=== PATIENT | male | born 1930 | race Caucasian/White ===

== ENCOUNTER 2019-03-29 10:36 | Emergency (ER) | payer OTHER ==
[2019-03-29 10:51] VITALS: TEMP 97.8; BMI 27.2
--- NOTE | 2019-03-29 11:05 | PDOC ---
Attending Attestation - Resident Resident Name: Uriah Rapp - ED Attending Attestation I have performed the following: I have examined & evaluated the patient, The case was reviewed & discussed with the resident, I agree w/resident's findings & plan, Exceptions are as noted - HPI HPI: 03/29/19 15:46 88 years old hypertension awoke from sleep feeling sweaty with a warm feeling over his chest denied any chest pain shortness of breath nausea vomiting and diarrhea went back to sleep. This morning he woke he called his doctor his doctor advised that he come to the emergency department to get checked out. Currently patient has no symptoms no fever no chills no chest pain or shortness of breath no new URI symptoms has chronic sinus issues but no fever unilateral symptoms or severe pain. Symptoms were mild states that it was probably because he was fully dressed and using a warm blanket in the house Asymptomatic - Physicial Exam PE: 03/29/19 16:00 Vitals: Triage Vital signs reviewed General Appearance: no acute distress, well nourished well developed, Head: Atraumatic, Neck: Supple;No Nucal rigidity Chest Wall: Nontender Cardiac: Regular rate and rhythym, no murmurs, no rubs, no gallops, Lungs: Clear to auscultation bilateral, good air movement bilaterally, Abdomen: Soft, non distended, normal bowel sounds, non tender to palpation Genitourinary: Rectal: Exam deferred Extremities: Full range of motion to all extremities, no cyanosis, clubbing, or edema Skin: Warm and dry, no rashes or lesions, no rash, no petechiae Psych: normal mood, normal affect - Medical Decision Making 03/29/19 16:01 Well-appearing no apparent distress with episode last night of feeling flush No complaints at this time no findings on physical exam at this time laboratory analysis unremarkable EKG unremarkable troponin negative Heart score 3 At this time patient is comfortable returning home over workup in the ED was essentially unremarkable he was advised to follow-up with his primary care provider he will return to ED for any severe returning symptoms or for any concerns. Heart Score/ECG Review - History History: Slightly suspicious - Electrocardiogram EKG: Normal - Age Age: >/= 65 - Risk Factors Risk Factors Heart Score: Yes Hx Hypertension Based on the list above the patient has:: 1-2 risk factors - ECG Impressions Comment:: 03/29/19 15:46 EKG performed at 1040 demonstrates normal sinus rhythm first-degree AV block right bundle-branch block no ST elevations no T-wave inversions Interpreted by me.
--- NOTE | 2019-03-29 11:09 | PDOC ---
History of Present Illness - General Chief Complaint: Chest Pain Stated Complaint: WARMTH TO CHEST Time Seen by Provider: 03/29/19 10:40 History Source: Patient Exam Limitations: No Limitations - History of Present Illness Initial Comments: 03/29/19 11:12 Nahum Villagomez is a 88yM w PMHx HTN, HLD, GERD presenting w chest warmth. At 2am this morning, he woke up in bed w midsternal chest warmth radiating up into neck lasting 45min. Associated nasal congestion and headache. Took 1 tylenol. Denies fever, nausea/vomiting, SOB, chest/AB pain, urinary, bowel movement changes. Past History - Past Medical History Allergies/Adverse Reactions: Allergies Allergy/AdvReac Type Severity Reaction Status Date / Time Penicillins Allergy Severe Hives Verified 03/29/19 10:38 amoxicillin Allergy Verified 03/29/19 10:38 codeine [Codeine] AdvReac Severe Hives Verified 03/29/19 10:38 Home Medications: Ambulatory Orders Simvastatin [Zocor -] 20 mg PO HS 04/21/12 Dutasteride [Avodart] 0.5 mg PO DAILY #0 cap 04/28/12 Famotidine [Pepcid -] 1 tab PO PRN 07/22/12 Ramipril 10 mg PO DAILY 03/29/19 Tamsulosin HCl [Flomax] 0.4 mg PO HS 03/29/19 Anemia: Yes (B12 DEFICIENCY) Asthma: No Cancer: No Cardiac Disorders: Yes CVA: No COPD: No CHF: No Dementia: No Diabetes: No GI Disorders: Yes (hernia) Disorders: Yes (BPH) HTN: Yes Hypercholesterolemia: Yes Liver Disease: No Seizures: No Thyroid Disease: No - Surgical History Abdominal Surgery: Yes (HERNIA REPAIR) Appendectomy: No Cardiac Surgery: No Cholecystectomy: No Lung Surgery: No Neurologic Surgery: No Orthopedic Surgery: Yes (ORTHOPEDIC KNEE SURGERY) - Psycho Social/Smoking Cessation Hx Smoking Status: No Smoking History: Former smoker Have you smoked in the past 12 months: No Number of Cigarettes Smoked Daily: 0 If you are a former smoker, when did you quit?: 55 YRS AGO Information on smoking cessation initiated: No Hx Alcohol Use: No Drug/Substance Use Hx: No Substance Use Type: None Hx Substance Use Treatment: No Review of Systems - Review of Systems Constitutional: No: Chills, Fever HEENTM: Yes: Nose Congestion. No: Eye Pain, Nose Pain, Throat Pain, Mouth Pain Respiratory: No: Cough, Shortness of Breath Cardiac (ROS): No: Chest Pain, Palpitations, Syncope ABD/GI: No: Abdominal Distended, Constipated, Diarrhea, Nausea, Vomiting : No: Burning, Dysuria, Discharge, Frequency, Flank Pain, Hematuria Musculoskeletal: No: Back Pain, Joint Pain, Joint Swelling, Muscle Pain Integumentary: No: Bruising, Dryness, Erythema Neurological: Yes: Headache Psychiatric: No: Anxiety, Depression *Physical Exam - Vital Signs Last Vital Signs Temp Pulse Resp BP Pulse Ox 97.8 F 74 18 165/67 98 03/29/19 10:36 03/29/19 10:36 03/29/19 10:36 03/29/19 10:36 03/29/19 10:36 - Physical Exam General Appearance: Yes: Nourished, Appropriately Dressed. No: Apparent Distress HEENT: positive: EOMI, RACHANA, Normal Voice, Nasal Congestion, Hearing Grossly Normal. negative: Scleral Icterus (R), Scleral Icterus (L), Rhinorrhea, Sinus Tenderness, Lesions Respiratory/Chest: positive: Lungs Clear, Normal Breath Sounds. negative: Chest Tender, Respiratory Distress, Crackles, Rales, Rhonchi, Stridor, Wheezing Cardiovascular: positive: Regular Rhythm, Regular Rate, S1, S2. 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 negative: Numbness, Confused, Disoriented Heart Score/ECG Review - History History: Slightly suspicious - Electrocardiogram EKG: Normal - Age Age: >/= 65 - Risk Factors Risk Factors Heart Score: Yes Hx Hypercholesterolemia, Yes Hx Hypertension Based on the list above the patient has:: 1-2 risk factors - Troponin Troponin: </= normal limit - Score Heart Score - Total: 3 ED Treatment Course - LABORATORY CBC & Chemistry Diagram: 03/29/19 11:10 03/29/19 11:10 Medical Decision Making - Medical Decision Making 03/29/19 11:11 CBC CMP trop UA normal tylenol EKG shows NSR w 1st degree AV block, RBBB, HR 71, QTc 449, no ST changes Nahum Parasiliti is a 88yM w PMHx HTN, HLD, GERD presenting w chest warmth likely d/t viral rhinitis with presence of sinus congestion vs reflux ( midsternal warmth laying in bed, past hx). No evidence of ACS with negative troponin, no ST changes on EKG, low heart score. Given tylenol for pain. D/c home with PCP f/u, tylenol/ibuprofen for headache. Discharge - Discharge Information Problems reviewed: Yes Clinical Impression/Diagnosis: Chest discomfort Condition: Stable Disposition: HOME - Admission No - Follow up/Referral Referrals: Martínez Moreno MD [Primary Care Provider] - - Patient Discharge Instructions Patient Printed Discharge Instructions: DI for Chest Pain Additional Instructions: You were seen for chest warmth. You have a viral upper respiratory infection. Your labs and workup did not show anything concerning. Please make an appointment to see your primary care doctor within the next 1-2 days regarding your visit. You can take saline nasal sprays for nasal congestion and tylenol or ibuprofen for headache as directed on the packaging. Come back to the ED if you have worsening chest pain, trouble breathing, or vomiting. - Post Discharge Activity
[2019-03-29] MEDS ORDERED: ACETAMINOPHEN 1000 MG/100 ML VIAL (NON FORMULARY) IVPB ONE (11:10)
[2019-03-29] MEDS ORDERED: ACETAMINOPHEN INJECTION 100 ML IVPB ONE (11:30)
[2019-03-29 11:39] LABS: BASO % 0.7 % (0-2.0); EOS % 4.2 % (0-4.5); HEMATOCRIT 44.5 % (35.4-49); HEMOGLOBIN 15.1 GM/dl (11.7-16.9); LYMPH % 17.8 % (8-40); MCH 31.3 pg (25.7-33.7); MCHC 33.9 g/dl (32.0-35.9); MEAN CELL VOLUME 92.3 fl (80-96); MEAN PLT VOLUME 7.7 fl (7.5-11.1); MONO % 8.8 % (3.8-10.2); NEUT % 68.5 % (42.8-82.8); PLATELET COUNT 258 K/MM3 (134-434); RBC 4.82 M/mm3 (4.00-5.60); WHITE BLOOD COUNT 7.9 K/mm3 (4.0-10.8)
[2019-03-29 11:44] LABS: ALBUMIN 3.9 g/dl (3.4-5.0); BILIRUBIN,TOTAL 0.7 mg/dl (0.2-1); CALCIUM 8.5 mg/dl (8.5-10); CREATININE 0.7 mg/dl (0.55-1.3); POTASSIUM 3.8 mmol/L (3.5-5.1); TOT PROT 6.4 g/dl (6.4-8.2)
[2019-03-29 12:48] LABS: EPITHELIAL CELLS FEW /hpf
[2019-03-29 13:11] VITALS: BP 145/77; PULSE 72
--- NOTE | 2019-03-30 12:12 | EKG ---
Test Reason : Blood Pressure : / mmHG Vent. Rate : 071 BPM Atrial Rate : 071 BPM P-R Int : 252 ms QRS Dur : 134 ms QT Int : 414 ms P-R-T Axes : 057 014 030 degrees QTc Int : 449 ms SINUS RHYTHM WITH 1ST DEGREE A-V BLOCK RIGHT BUNDLE BRANCH BLOCK ABNORMAL ECG WHEN COMPARED WITH ECG OF 25-JUL-2013 19:41, NO SIGNIFICANT CHANGE WAS FOUND Confirmed by SHARI DANIELS, CIRA ([id number]) on 03/30/2019 12:12:40 PM Referred By: DUSTY LUTHER Confirmed By:CIRA MCCARTHY MD
== END 2019-03-29 13:00 | disposition home or self-care (01) ==
LOC: FER 10:36
PROC: 3E033NZ Introduction of Analgesics, Hypnotics, Sedatives into Peripheral Vein, Percutaneous Approach (ICD-10-PCS; principal; 2019-03-29)
DX: R07.89 Other chest pain (principal); E78.00 Pure hypercholesterolemia, unspecified; I10 Essential (primary) hypertension; Z87.891 Personal history of nicotine dependence; D64.9 Anemia, unspecified; K21.9 Gastro-esophageal reflux disease without esophagitis
CPT/HCPCS: 36415; 71046-TC-FY; 80053; 81003; 81015; 84484; 85025; 93005; 96374; 99285-25; J0131

== ENCOUNTER 2019-04-04 21:53 | Inpatient (IN) | payer OTHER ==
[2019-04-04 22:06] VITALS: BMI 25.8
--- NOTE | 2019-04-04 23:19 | PDOC ---
History of Present Illness - General Chief Complaint: Pain Stated Complaint: ABD PAIN - History of Present Illness Initial Comments: The pt is an 88M w/ a history of HTN, HLD, hiatal hernia, and BPH who presents for evaluation of 6 hours of RLQ abdominal pain. The pain is described as his stomach turning over, non-radiating, improving, and is not exacerbated or alleviated by anything he can identify. 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 He denies VELAZQUEZ, vision changes, chest pain, trouble breathing, N/V/C/D, dysuria, hematuria, or changes in sensation. 04/05/19 00:05 Past History - Past Medical History Allergies/Adverse Reactions: Allergies Allergy/AdvReac Type Severity Reaction Status Date / Time Penicillins Allergy Severe Hives Verified 04/04/19 22:06 amoxicillin Allergy Verified 04/04/19 22:06 codeine [Codeine] AdvReac Severe Hives Verified 04/04/19 22:06 Home Medications: Ambulatory Orders Simvastatin [Zocor -] 20 mg PO HS 04/21/12 Famotidine [Pepcid -] 1 tab PO PRN 07/22/12 Ramipril 10 mg PO DAILY 03/29/19 Tamsulosin HCl [Flomax] 0.4 mg PO HS 03/29/19 Azithromycin [Zithromax Tri-Gonzalo (3 DAYS) -] 500 mg PO DAILY 04/05/19 Finasteride 5 mg PO DAILY 04/05/19 Anemia: Yes (B12 DEFICIENCY) Asthma: No Cancer: No Cardiac Disorders: Yes CVA: No COPD: No CHF: No Dementia: No Diabetes: No GI Disorders: No (HERNIA REPAIR, REFLUX) Disorders: Yes (BPH) HTN: Yes Hypercholesterolemia: Yes Liver Disease: No Seizures: No Thyroid Disease: No - Surgical History Abdominal Surgery: Yes (HERNIA REPAIR) Appendectomy: No Cardiac Surgery: No Cholecystectomy: No Lung Surgery: No Neurologic Surgery: No Orthopedic Surgery: Yes (ORTHOPEDIC KNEE SURGERY) - Psycho Social/Smoking Cessation Hx Smoking Status: No Smoking History: Unknown if ever smoked Have you smoked in the past 12 months: No Number of Cigarettes Smoked Daily: 0 If you are a former smoker, when did you quit?: 55 YRS AGO Hx Alcohol Use: No Drug/Substance Use Hx: No Substance Use Type: None Hx Substance Use Treatment: No Review of Systems - Review of Systems Able to Perform ROS?: Yes Comments:: GENERAL/CONSTITUTIONAL: No fever or chills HEAD, EYES, EARS, NOSE AND THROAT: No change in vision. No change in hearing. No sore throat CARDIOVASCULAR: No chest pain or shortness of breath RESPIRATORY: Denies cough, hemoptysis GASTROINTESTINAL: No nausea, vomiting, diarrhea or constipation GENITOURINARY: No dysuria, frequency, or change in urination MUSCULOSKELETAL: No joint or muscle swelling or pain. No neck or back pain SKIN: No rash NEUROLOGIC: No headache, vertigo, or change in strength/sensation ENDOCRINE: No increased thirst. No abnormal weight change HEMATOLOGIC/LYMPHATIC: No anemia, easy bleeding, or history of blood clots ALLERGIC/IMMUNOLOGIC: No hives or skin allergy 04/04/19 23:18 Is the patient limited [place]dean proficient: No *Physical Exam - Vital Signs Last Vital Signs Temp Pulse Resp BP Pulse Ox 98.3 F 60 18 114/50 L 95 04/04/19 22:04 04/04/19 22:04 04/04/19 22:04 04/04/19 22:04 04/04/19 22:04 - Physical Exam Comments: GENERAL: Awake, alert, and oriented to person/place/time, in no acute distress HEAD: No signs of trauma, normocephalic, atraumatic EYES: PERRLA, EOMI, sclera anicteric, conjunctiva clear ENT: Hearing grossly normal, nares patent, oropharynx clear without exudates. Moist mucosa LUNGS: No distress, speaks in full sentences, clear to auscultation bilaterally HEART: Regular rate and rhythm, normal S1 and S2, no murmurs appreciated, peripheral pulses normal and equal bilaterally ABDOMEN: Soft, protuberant, NTTP, normoactive bowel sounds. No guarding, no rebound EXTREMITIES: Normal inspection, Normal range of motion, no edema. No clubbing or cyanosis NEUROLOGICAL: Cranial nerves II through XII grossly intact. Normal speech, no focal sensorimotor deficits SKIN: Warm, Dry 04/04/19 23:19 ED Treatment Course - LABORATORY CBC & Chemistry Diagram: 04/05/19 00:30 04/05/19 00:30 Medical Decision Making - Medical Decision Making The pt is an 88M w/ a history of HTN, HLD, hiatal hernia, and BPH who presents for evaluation of 6 hours of RLQ abdominal pain and a near syncopal episode ED Course Labs sent ECG CXR CT A&P w/ IV contrast Will reassess 04/05/19 00:44 Leukocytosis to 15, afebrile, non-tachycardic No anemia Lytes unremarkable Trop I neg LFTs wnl UA w/o evidence of UTI CT A&P IMPRESSION: Calcified coronary arteriosclerosis and calcification of the aortic valve and mitral valve. Small hiatal hernia. Right liver lobe nonspecific hypodense lesion measures approximately to 2.7 x 1.3 cm may be benign or malignant. If clinically indicated follow-up outpatient MRI liver with contrast may be needed. Cholelithiasis in the gallbladder neck with moderate gallbladder distention most likely associated with gallbladder dysmotility may be associated with chronic cholecystitis. If clinically indicated follow-up outpatient nuclear medicine hepatobiliary scan with a slow 10 minute cholecystokinin injection gallbladder ejection fraction calculation may be needed. Moderate to severe arteriosclerosis of the aorta aortic branches and pelvic vasculature. Constipation with diverticulosis without diverticulitis. Nodular nonspecific prostatomegaly extends into the inferior bladder wall. If clinically indicated follow-up outpatient PSA level may be needed. Mild bladder wall thickening may be due to infectious cystitis or partial bladder outlet obstruction associated with prostatomegaly. Moderate to severe spinal canal narrowing and neural foraminal narrowing in the lower lumbar levels. 04/05/19 02:28 Plan for Tele obs for pre-syncope Pt signed out to [facility] Admitting 04/05/19 06:19 Discharge - Discharge Information Problems reviewed: Yes Clinical Impression/Diagnosis: Near syncope Abdominal pain Qualifiers: Abdominal location: right lower quadrant Qualified Code(s): R10.31 - Right lower quadrant pain Leukocytosis Qualifiers: Leukocytosis type: unspecified Qualified Code(s): D72.829 - Elevated white blood cell count, unspecified Condition: Good - Admission Yes - Follow up/Referral - Patient Discharge Instructions - Post Discharge Activity
--- NOTE | 2019-04-04 23:30 | PDOC ---
Attending Attestation - Resident Resident Name: Seun Perry - ED Attending Attestation I have performed the following: I have examined & evaluated the patient, The case was reviewed & discussed with the resident, I agree w/resident's findings & plan - HPI HPI: 04/05/19 02:27 see resident hpi - Physicial Exam PE: 04/05/19 02:27 agree with resident exam - Medical Decision Making 04/05/19 02:27 88-year-old male with right-sided abdominal pain and near syncopal episode CT scan of the abdomen and pelvis shows common bile duct cholelithiasis Patient has persistent tenderness on the right side of the abdomen with with an elevated white blood cell count We will admit to telemetry for near syncope, patient will require right upper quadrant ultrasound in the morning for further evaluation as well
[2019-04-05 00:57] LABS: BASO % 0.4 % (0-2.0); EOS % 0.5 % (0-4.5); HEMATOCRIT 48.2 % (35.4-49); LYMPH % 5.1 % (8-40); MCH 30.5 pg (25.7-33.7); MCHC 33.3 g/dl (32.0-35.9); MEAN CELL VOLUME 91.5 fl (80-96); MEAN PLT VOLUME 7.6 fl (7.5-11.1); PLATELET COUNT 231 K/MM3 (134-434); RBC 5.27 M/mm3 (4.00-5.60); RDW 13.3 % (11.9-15.9); WHITE BLOOD COUNT 15.7 K/mm3 (4.0-10.0)
[2019-04-05 01:23] LABS: INR 0.97 (0.83-1.09); PROTHROMBIN TIME (PATIENT) 11.5 SEC (9.7-13.0)
[2019-04-05 01:31] LABS: ALBUMIN 4.1 g/dl (3.4-5.0); BILIRUBIN,TOTAL 0.4 mg/dL (0.2-1); BLOOD UREA NITROGEN 12.5 mg/dL (7-18); CALCIUM 8.9 mg/dL (8.5-10.1); CREATININE 0.8 mg/dL (0.55-1.3); POTASSIUM 4.3 mmol/L (3.5-5.1); TOT PROT 7.5 g/dl (6.4-8.2)
[2019-04-05 01:43] LABS: URINE APPEARANCE CLEAR; URINE BILIRUBIN NEGATIVE (NEGATIVE); URINE COLOR YELLOW; URINE GLUCOSE (UA) NEGATIVE (NEGATIVE); URINE KETONE NEGATIVE (NEGATIVE); URINE LEUK ESTERASE NEGATIVE (NEGATIVE); URINE NITRITE NEGATIVE (NEGATIVE); URINE PROTEIN TRACE (NEGATIVE); URINE UROBILINOGEN 0.2 mg/dL (0.2-1.0)
--- NOTE | 2019-04-05 03:33 | HP ---
CHIEF COMPLAINT: PCP: Dr. Moreno HISTORY OF PRESENT ILLNESS: 88 y/o/m with PMHx of HTN, HLD, hiatal hernia, and BPH here for abd discomfort that started last night around 1800 after he had dinner. He states the discomfort is in the RLQ and intermittent. He states it is not painful and is not able to accurately describe it. The discomfort does not radiate and nothing makes it better or worse. 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 He did not lose consciousness, fall, or hit his head at all during this time. He was prescribed a Z-pack last week by Dr. Moreno for an upper respiratory infection and finished his last dose yesterday. He states he still feels congested. He denies any chest pain, SOB, N/V/D, dysuria, constipation, or other symptoms. ER course was notable for: (1) Extensive CT findings, notable for cholelithiasis at the neck of the gallbladder with moderate gallbladder distension (2) Elevated WBC, afebrile, negative UA PAST MEDICAL HISTORY: HTN, HLD, hiatal hernia, BPH PAST SURGICAL HISTORY: R knee arthroscopy Social History: Smoking: remote past history Alcohol: denies Drugs: denies Allergies Penicillins Allergy (Severe, Verified 04/04/19 22:06) Hives amoxicillin Allergy (Verified 04/04/19 22:06) codeine [Codeine] Adverse Reaction (Severe, Verified 04/04/19 22:06) Hives HOME MEDICATIONS: Home Medications Medication Instructions Recorded Simvastatin [Zocor -] 20 mg PO HS 04/21/12 Famotidine [Pepcid -] 1 tab PO PRN 07/22/12 Ramipril 10 mg PO DAILY 03/29/19 Tamsulosin HCl [Flomax] 0.4 mg PO HS 03/29/19 REVIEW OF SYSTEMS Constitutional: weakness, sweating. denies loss of appetite HEENT: denies sore throat, vision changes, nasal congestion Cardio: lightheaded. denies chest pain, palpitations Resp: denies SOB, wheezing GI: RLQ abdominal discomfort, denies vomiting, diarrhea, constipation : denies dysuria MSK: denies back pain, joint pain, neck pain SKIN: denies rashes Neuro: denies loss of consciousness, numbness, tingling, headache Endocrine: denies intolerance of hot or cold temperatures PHYSICAL EXAMINATION Vital Signs - 24 hr 04/04/19 22:04 Temperature 98.3 F Pulse Rate 60 Respiratory 18 Rate Blood Pressure 114/50 L O2 Sat by Pulse 95 Oximetry (%) GENERAL: Awake, alert, and fully oriented, in no acute distress. HEAD: NC/AT EYES: PERRL, EOMI EARS, NOSE, THROAT: Ears normal, nares patent, oropharynx clear without exudates. Moist mucous membranes. NECK: supple, no cervical lymphadenopathy LUNGS: Breath sounds equal, clear to auscultation bilaterally. No wheezes, and no crackles. No accessory muscle use. HEART: Regular rate and rhythm, normal S1 and S2 without murmur, rub or gallop. ABDOMEN: mild tenderness to palpation in RLQ. negative McBurney's point tenderness. Soft, non distended, normoactive bowel sounds, no guarding, no rebound, no masses. MUSCULOSKELETAL: Normal range of motion at all joints. No bony deformities or tenderness. No CVA tenderness. UPPER EXTREMITIES: 2+ pulses, warm, well-perfused. No cyanosis. No clubbing. No peripheral edema. LOWER EXTREMITIES: 2+ pulses, warm, well-perfused. No peripheral edema. NEUROLOGICAL: NIHSS = 0. Cranial nerves II-XII intact. Normal speech. 5/5 strength upper and lower extremities. PSYCHIATRIC: Cooperative. Good eye contact. Appropriate mood and affect. SKIN: Warm, dry, normal turgor, no rashes or lesions noted, normal capillary refill. Laboratory Results - last 24 hr 04/05/19 04/05/19 04/05/19 00:30 00:30 00:30 WBC 15.7 H RBC 5.27 Hgb 16.0 Hct 48.2 MCV 91.5 MCH 30.5 MCHC 33.3 RDW 13.3 Plt Count 231 MPV 7.6 Absolute Neuts (auto) 14.1 H Neutrophils % 90.0 H Lymphocytes % 5.1 L D Monocytes % 4.0 Eosinophils % 0.5 Basophils % 0.4 Nucleated RBC % 0 PT with INR INR PTT (Actin FS) 29.4 Sodium 134 L Potassium 4.3 Chloride 98 Carbon Dioxide 26 Anion Gap 9 BUN 12.5 Creatinine 0.8 Est GFR (CKD-EPI)AfAm 91.79 Est GFR (CKD-EPI)NonAf 79.20 Random Glucose 128 H Calcium 8.9 Total Bilirubin 0.4 AST 23 ALT 27 Alkaline Phosphatase 67 Troponin I Total Protein 7.5 Albumin 4.1 Urine Color Urine Appearance Urine pH Ur Specific Latty Urine Protein Urine Glucose (UA) Urine Ketones Urine Blood Urine Nitrite Urine Bilirubin Urine Urobilinogen Ur Leukocyte Esterase 04/05/19 04/05/19 04/05/19 00:30 00:30 01:30 WBC RBC Hgb Hct MCV MCH MCHC RDW Plt Count MPV Absolute Neuts (auto) Neutrophils % Lymphocytes % Monocytes % Eosinophils % Basophils % Nucleated RBC % PT with INR 11.50 INR 0.97 PTT (Actin FS) Sodium Potassium Chloride Carbon Dioxide Anion Gap BUN Creatinine Est GFR (CKD-EPI)AfAm Est GFR (CKD-EPI)NonAf Random Glucose Calcium Total Bilirubin AST ALT Alkaline Phosphatase Troponin I < 0.02 Total Protein Albumin Urine Color Yellow Urine Appearance Clear Urine pH 7.0 Ur Specific Latty 1.015 Urine Protein Trace Urine Glucose (UA) Negative Urine Ketones Negative Urine Blood Negative Urine Nitrite Negative Urine Bilirubin Negative Urine Urobilinogen 0.2 Ur Leukocyte Esterase Negative Imaging: CT A&P IMPRESSION: Calcified coronary arteriosclerosis and calcification of the aortic valve and mitral valve. Small hiatal hernia. Right liver lobe nonspecific hypodense lesion measures approximately to 2.7 x 1.3 cm may be benign or malignant. If clinically indicated follow-up outpatient MRI liver with contrast may be needed. Cholelithiasis in the gallbladder neck with moderate gallbladder distention most likely associated with gallbladder dysmotility may be associated with chronic cholecystitis. If clinically indicated follow-up outpatient nuclear medicine hepatobiliary scan with a slow 10 minute cholecystokinin injection gallbladder ejection fraction calculation may be needed. Moderate to severe arteriosclerosis of the aorta aortic branches and pelvic vasculature. Constipation with diverticulosis without diverticulitis. Nodular nonspecific prostatomegaly extends into the inferior bladder wall. If clinically indicated follow-up outpatient PSA level may be needed. Mild bladder wall thickening may be due to infectious cystitis or partial bladder outlet obstruction associated with prostatomegaly. Moderate to severe spinal canal narrowing and neural foraminal narrowing in the lower lumbar levels. ASSESSMENT/PLAN: 88 y/o/m with PMHx of HTN, HLD, hiatal hernia, and BPH here for abd discomfort that started last night around 1800 after he had dinner and an episode of near syncope after urinating. 1)Cholecystitis - CT A&P showing cholelithiasis in the gallbladder neck with moderate distension of the gallbladder, patient with leukocytosis -Started on Levoquin and Flagyl -RUQ U/S ordered for further evaluation -Surgery consulted, Dr. Dacosta -NPO, IVF, pre-op labs ordered 2)Dizziness -Orthostatic Vitals ordered 3)Constipation - CT with evidence of constipation with divericulosis without diverticulitis -Patient states he is having good bowel movements at home, last BM yesterday -monitor and treat as appropriate, no need to laxatives at this time 4)Spinal Narrowing - moderate to severe spinal canal narrowing in the lower lumbar levels as per CT -consider outpatient neuro/neurosurgery follow up 5)Liver mass - CT shows hypodense liver mass that is questionable in origin -consider outpatient follow up with MRI 6)FEN -NS @ 75mls/hr -NPO in anticipation of possible surgical procedure 7)Prophylaxis -holding anticoagulation in anticipation of possible surgical procedure -SCDs 8)Disposition -admitted to med/surg Visit type - Emergency Visit Emergency Visit: Yes ED Registration Date: 04/05/19 Care time: The patient presented to the Emergency Department on the above date and was hospitalized for further evaluation of their emergent condition. - New Patient This patient is new to me today: Yes Date on this admission: 04/05/19 - Critical Care Critical Care patient: No ATTENDING PHYSICIAN STATEMENT I saw and evaluated the patient. I reviewed the resident's note and discussed the case with the resident. I agree with the resident's findings and plan as documented. SUBJECTIVE: OBJECTIVE: ASSESSMENT AND PLAN:
[2019-04-05] MEDS ORDERED: SODIUM CHLORIDE 1,000 ML IV SCH (04:15)
[2019-04-05] MEDS ORDERED: ACETAMINOPHEN 1000 MG/100 ML VIAL (NON FORMULARY) IVPB PRN (04:38)
--- NOTE | 2019-04-05 05:02 | PN ---
Teaching Attending Note Name of Resident: James Worrell ATTENDING PHYSICIAN STATEMENT I saw and evaluated the patient. I reviewed the resident's note and discussed the case with the resident. I agree with the resident's findings and plan as documented. SUBJECTIVE: 88M w/ a history of HTN, HLD, hiatal hernia, and BPH presented for evaluation of 6 hours of RLQ abdominal pain. Some nausea bur denied vomiting or fevers. Endorses an episode of diaphoresis, lightheadedness, and near fall just prior to arrival, however no syncope. OBJECTIVE: Last Vital Signs Temp Pulse Resp BP Pulse Ox 98.3 F 60 18 114/50 L 95 04/04/19 22:04 04/04/19 22:04 04/04/19 22:04 04/04/19 22:04 04/04/19 22:04 gen -nad, nontoxic appearing heent -atraumatic neck supple chest clear cv-s1+s2+rrr abdomen -mild ruq tenderness ext - no pedal edema Abnormal Lab Results 04/05/19 04/05/19 00:30 00:30 WBC 15.7 H Absolute Neuts (auto) 14.1 H Neutrophils % 90.0 H Lymphocytes % 5.1 L D Sodium 134 L Random Glucose 128 H ekg reviewed imaging reviewed- ct abd/pelvis - Calcified coronary arteriosclerosis and calcification of the aortic valve and mitral valve. Small hiatal hernia. Right liver lobe nonspecific hypodense lesion measures approximately to 2.7 x 1.3 cm may be benign or malignant. If clinically indicated follow-up outpatient MRI liver with contrast may be needed. Cholelithiasis in the gallbladder neck with moderate gallbladder distention most likely associated with gallbladder dysmotility may be associated with chronic cholecystitis. If clinically indicated follow-up outpatient nuclear medicine hepatobiliary scan with a slow 10 minute cholecystokinin injection gallbladder ejection fraction calculation may be needed. Moderate to severe arteriosclerosis of the aorta aortic branches and pelvic vasculature. Constipation with diverticulosis without diverticulitis. Nodular nonspecific prostatomegaly extends into the inferior bladder wall. If clinically indicated follow-up outpatient PSA level may be needed. Mild bladder wall thickening may be due to infectious cystitis or partial bladder outlet obstruction associated with prostatomegaly. Moderate to severe spinal canal narrowing and neural foraminal narrowing in the lower lumbar levels. ASSESSMENT AND PLAN: #Cholecystitis-Cholelithiasis in the gallbladder neck with moderate gallbladder distention on abd/pelvis ct -med/surg -npo -surgery consult for cholecystectomy -pt/ptt -iv fluid hydration -no antibiotics at this time #Right liver lobe nonspecific hypodense lesion measures approximately to 2.7 x 1.3 cm-concerning for possible HCC vs mets from other malignancy such as colon cancer. -liver u/s -hepatitis b,c serology -consider GI evaluation #Diverticulosis #BPH #Lightheadedness- no history of syncope. EKG showed sinus rhythm -check orthostatics -IV fluid hydration -#DVT ppx -heparin sc
[2019-04-05] MEDS ORDERED: ACETAMINOPHEN INJECTION 100 ML IVPB ONE (05:20)
[2019-04-05] MEDS: RAMIPRIL 5 MG CAPSULE (FP) PO SCH (10:00)
--- NOTE | 2019-04-05 10:06 | CONSULT ---
- Consultation REQUESTING PROVIDER: CONSULT REQUEST: We have been asked to surgically evaluate this patient for possible gallstone disease/abdominal pain. PCP:ALEX Orellana HISTORY OF PRESENT ILLNESS: The patient presented to the ER after he felt weak, dizzy and almost blacking out while using the restroom. He had a BM yesterday morning, later he had abdominal pain and then felt like passing out with trying to have a BM. No nausea or emesis. He is atill having some abdominal pain which is mostly mid abdomen. No history of diverticular disease. PMHx: high cholesterol, hypertension, hiatal hernia, enlarged prostate PSHx: right knee meniscal surgery Home Medications Medication Instructions Recorded Simvastatin [Zocor -] 20 mg PO HS 04/21/12 Famotidine [Pepcid -] 1 tab PO PRN 07/22/12 Ramipril 10 mg PO DAILY 03/29/19 Tamsulosin HCl [Flomax] 0.4 mg PO HS 03/29/19 Azithromycin [Zithromax Tri-Gonzalo (3 500 mg PO DAILY 04/05/19 DAYS) -] Finasteride 5 mg PO DAILY 04/05/19 Allergies Allergy/AdvReac Type Severity Reaction Status Date / Time Penicillins Allergy Severe Hives Verified 04/04/19 22:06 amoxicillin Allergy Verified 04/04/19 22:06 codeine [Codeine] AdvReac Severe Hives Verified 04/04/19 22:06 REVIEW OF SYSTEMS: CONSTITUTIONAL: Absent: fever, chills Present: weakness CARDIOVASCULAR: Absent: chest pain, syncope, palpitations RESPIRATORY: Absent: cough, shortness of breath GASTROINTESTINAL: Present: abdominal pain Absent: nausea/emesis GENITOURINARY: Present: frequency Absent: hematuria NEUROLOGIC: Present: headache from chronic sinusitis( just finished a ZPAC) PHYSICAL EXAM: GENERAL: Awake, alert, and fully oriented, in no acute distress. LUNGS: Clear to auscultation bilat anteriorly. HEART: Regular rate and rhythm. No murmurs ABDOMEN: Soft, mild mid abd tenderss/supraumbilical, not distended,no guarding, no rebound, no masses. NEUROLOGICAL: Normal speech, gait not observed. PSYCH: Cooperative. Good eye contact. Appropriate mood and affect. Vital Signs Temperature 98.3 F 04/04/19 22:04 Pulse Rate 60 04/04/19 22:04 Respiratory Rate 18 04/04/19 22:04 Blood Pressure 114/50 L 04/04/19 22:04 O2 Sat by Pulse Oximetry (%) 95 04/04/19 22:04 Lab Results WBC 15.7 K/mm3 (4.0-10.0) H 04/05/19 00:30 RBC 5.27 M/mm3 (4.00-5.60) 04/05/19 00:30 Hgb 16.0 GM/dL (11.7-16.9) 04/05/19 00:30 Hct 48.2 % (35.4-49) 04/05/19 00:30 MCV 91.5 fl (80-96) 04/05/19 00:30 MCHC 33.3 g/dl (32.0-35.9) 04/05/19 00:30 RDW 13.3 % (11.9-15.9) 04/05/19 00:30 Plt Count 231 K/MM3 (134-434) 04/05/19 00:30 Sodium 134 mmol/L (136-145) L 04/05/19 00:30 Potassium 4.3 mmol/L (3.5-5.1) 04/05/19 00:30 Chloride 98 mmol/L (98-107) 04/05/19 00:30 Carbon Dioxide 26 mmol/L (21-32) 04/05/19 00:30 Anion Gap 9 MMOL/L (8-16) 04/05/19 00:30 BUN 12.5 mg/dL (7-18) 04/05/19 00:30 Creatinine 0.8 mg/dL (0.55-1.3) 04/05/19 00:30 Random Glucose 128 mg/dL (74-106) H 04/05/19 00:30 Calcium 8.9 mg/dL (8.5-10.1) 04/05/19 00:30 INR 0.97 (0.83-1.09) 04/05/19 00:30 Laboratory Tests 04/05/19 04/05/19 04/05/19 00:30 00:30 01:30 Total Bilirubin 0.4 AST 23 ALT 27 Alkaline Phosphatase 67 Troponin I < 0.02 Urine Color Yellow Urine Appearance Clear Urine pH 7.0 Ur Specific [place] 1.015 Urine Protein Trace Urine Glucose (UA) Negative Urine Ketones Negative Urine Blood Negative Urine Nitrite Negative Urine Bilirubin Negative Urine Urobilinogen 0.2 Ur Leukocyte Esterase Negative CT scan: without constrast-gallstones, no bowel obstruction no evidence of fluid collections US: gallstones, no CBD dilatation. Problem List - Problems (1) Abdominal pain Assessment/Plan: Pt with mid abd pain and radiographic findings of gallstones. No evidence of pericholecystic fluid/GB thickening. No fevers but with leukocytosis. His pain is mid abdomen and not in the RUQ/epigastric region. Will observe with the medical team, npo while abdominal pain symptoms still present. If leukocytosis improves may begin trial of clears and advance as tolerated. ? biliary colic IV abx for leukocytosis, urine culute pending. CXR WNL Case D/w Dr. Dacosta Code(s): R10.9 - UNSPECIFIED ABDOMINAL PAIN Qualifiers: Abdominal location: right lower quadrant Qualified Code(s): R10.31 - Right lower quadrant pain
--- NOTE | 2019-04-05 10:27 | PN ---
Progress Note (short form) - Note Progress Note: Seen in ED. Patient awaiting med/surg bed. On exam TTP to mid quad radiating to right flank. Radiographic findings of gallstones. No evidence of pericholecystic fluid/GB thickening. No fevers but with leukocytosi Consult placed for Dr Dacosta. HIDA Scan ordered Will maintain NPO. MSO4 ordered for pain. Will continue to monitor off abx. Hypodense Mass noted on CT to liver previously seen on imaging in 2013. Could represent hemangioma vs malignancy. US was limited but did not see mass. Will review imaging with GI to determine further work-up. If leukocytosis/pain resolves will give clear diet in am and advance as tolerated. Problem List - Problems (1) Liver mass Code(s): R16.0 - HEPATOMEGALY, NOT ELSEWHERE CLASSIFIED (2) Abdominal pain Code(s): R10.9 - UNSPECIFIED ABDOMINAL PAIN Qualifiers: Abdominal location: right lower quadrant Qualified Code(s): R10.31 - Right lower quadrant pain (3) Leukocytosis Code(s): D72.829 - ELEVATED WHITE BLOOD CELL COUNT, UNSPECIFIED Qualifiers: Leukocytosis type: unspecified Qualified Code(s): D72.829 - Elevated white blood cell count, unspecified Visit type - Emergency Visit Emergency Visit: Yes ED Registration Date: 04/05/19 Care time: The patient presented to the Emergency Department on the above date and was hospitalized for further evaluation of their emergent condition. - New Patient This patient is new to me today: Yes Date on this admission: 04/05/19 - Critical Care Critical Care patient: No - Discharge Referral Referred to [facility] Med P.C.: No
[2019-04-05] MEDS ORDERED: morphine CARPU-JECT 4 MG/1 ML DISP.SYRIN IVPUSH ONE (10:44)
[2019-04-05] MEDS ORDERED: MORPHINE SULFATE 2 MG/ML VIAL IVPUSH ONE (10:44)
[2019-04-05] MEDS ORDERED: MORPHINE SULFATE 2 MG/ML VIAL ONE (10:50)
[2019-04-05] MEDS ORDERED: RAMIPRIL 5 MG CAPSULE (FP) ONE (10:50)
[2019-04-05] MEDS: FINASTERIDE 5 MG TABLET (FP) PO SCH (11:05)
--- NOTE | 2019-04-05 12:05 | EKG ---
Test Reason : Blood Pressure : / mmHG Vent. Rate : 088 BPM Atrial Rate : 088 BPM P-R Int : 268 ms QRS Dur : 136 ms QT Int : 394 ms P-R-T Axes : 054 012 008 degrees QTc Int : 476 ms SINUS RHYTHM WITH 1ST DEGREE A-V BLOCK RIGHT BUNDLE BRANCH BLOCK ABNORMAL ECG WHEN COMPARED WITH ECG OF 29-MAR-2019 10:40, NO SIGNIFICANT CHANGE WAS FOUND Confirmed by Benja Cade ([id number]) on 04/05/2019 12:05:26 PM Referred By: Confirmed By:Benja Cade
[2019-04-05] MEDS: SODIUM CHLORIDE 1,000 ML IV SCH (16:41)
[2019-04-05] MEDS ORDERED: TAMSULOSIN HCL 0.4 MG CAP ONE (20:28)
[2019-04-05] MEDS ORDERED: ATORVASTATIN CA 10 MG TABLET (FP) ONE (20:28)
[2019-04-05] MEDS ORDERED: TAMSULOSIN HCL 0.4 MG CAP PO SCH (22:00)
[2019-04-05] MEDS ORDERED: ATORVASTATIN CA 10 MG TABLET (FP) PO SCH (22:00)
[2019-04-06] MEDS: SODIUM CHLORIDE 1,000 ML IV SCH (04:36)
--- NOTE | 2019-04-06 07:45 | PN ---
Progress Note, Physician History of Present Illness: 88 y/o/m with PMHx of HTN, HLD, hiatal hernia, and BPH here for abd discomfort that started last night around 1800 after he had dinner. He states the discomfort is in the RLQ and intermittent. He states it is not painful and is not able to accurately describe it. The discomfort does not radiate and nothing makes it better or worse. 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 He did not lose consciousness, fall, or hit his head at all during this time. He was prescribed a Z-pack last week by Dr. Moreno for an upper respiratory infection and finished his last dose yesterday. He states he still feels congested. He denies any chest pain, SOB, N/V/D, dysuria, constipation, or other symptoms. - Current Medication List Current Medications: Active Medications Acetaminophen (Ofirmev Injection -) 1,000 mg IVPB Q6H PRN PRN Reason: PAIN OR FEVER Last Admin: 04/05/19 05:31 Dose: 1,000 mg Atorvastatin Calcium (Lipitor -) 10 mg PO HS [facility] Last Admin: 04/05/19 21:23 Dose: 10 mg Finasteride (Proscar -) 5 mg PO DAILY [facility] Last Admin: 04/05/19 11:05 Dose: 5 mg Metronidazole (Flagyl 500mg Premixed Ivpb -) 500 mg in 100 mls @ 100 mls/hr IVPB Q8H-IV [facility]SHA Last Admin: 04/06/19 02:10 Dose: 100 mls/hr Levofloxacin (Levaquin 750 Mg Premixed Ivpb -) 750 mg in 150 mls @ 100 mls/hr IVPB DAILY HARSHA; Protocol Last Admin: 04/05/19 11:05 Dose: 100 mls/hr Sodium Chloride (Normal Saline -) 1,000 mls @ 100 mls/hr IV ASDIR HARSHA Last Admin: 04/06/19 04:36 Dose: 100 mls/hr Ramipril (Altace -) 10 mg PO DAILY [facility] Last Admin: 04/05/19 10:00 Dose: 10 mg Tamsulosin HCl (Flomax -) 0.4 mg PO HS [facility] Last Admin: 04/05/19 21:23 Dose: 0.4 mg - Objective Vital Signs: Vital Signs Temperature 97.2 F L 04/05/19 20:33 Pulse Rate 68 04/05/19 20:33 Respiratory Rate 17 04/05/19 20:33 Blood Pressure 157/63 04/05/19 20:33 O2 Sat by Pulse Oximetry (%) 98 04/06/19 01:13 Labs: CBC, BMP 04/05/19 00:30 04/05/19 00:30 INR, PTT INR 0.97 (0.83-1.09) 04/05/19 00:30 Problem List - Problems (1) Liver mass Code(s): R16.0 - HEPATOMEGALY, NOT ELSEWHERE CLASSIFIED (2) Abdominal pain Code(s): R10.9 - UNSPECIFIED ABDOMINAL PAIN Qualifiers: Abdominal location: right lower quadrant Qualified Code(s): R10.31 - Right lower quadrant pain (3) Leukocytosis Code(s): D72.829 - ELEVATED WHITE BLOOD CELL COUNT, UNSPECIFIED Qualifiers: Leukocytosis type: unspecified Qualified Code(s): D72.829 - Elevated white blood cell count, unspecified
[2019-04-06 08:27] LABS: BASO % 0.2 % (0-2.0); EOS % 0.9 % (0-4.5); HEMATOCRIT 43.8 % (35.4-49); HEMOGLOBIN 15.1 GM/dL (11.7-16.9); LYMPH % 7.9 % (8-40); MCH 31.3 pg (25.7-33.7); MCHC 34.6 g/dl (32.0-35.9); MEAN CELL VOLUME 90.6 fl (80-96); MEAN PLT VOLUME 7.8 fl (7.5-11.1); MONO % 7.7 % (3.8-10.2); NEUT % 83.3 % (42.8-82.8); PLATELET COUNT 213 K/MM3 (134-434); RBC 4.83 M/mm3 (4.00-5.60); RDW 13.1 % (11.9-15.9); WHITE BLOOD COUNT 12.2 K/mm3 (4.0-10.0)
--- NOTE | 2019-04-06 08:33 | PN ---
Progress Note (short form) - Note Progress Note: Pt seen and examined. Reports abdominal pain is stable from yesterday. NPO. Passing flatus. No n/v. Denies cp/sob. Vital Signs Temp 97.4 F L 04/06/19 06:00 Pulse 70 04/06/19 06:00 Resp 17 04/06/19 06:00 BP 150/78 04/06/19 06:00 Pulse Ox 98 04/06/19 01:13 Intake & Output 04/05/19 04/05/19 04/06/19 11:59 23:59 11:59 Weight 160 lb Other: Voiding Method Urinal Height 5 ft 6 in Body Mass Index (BMI) 25.8 Gen: awake, alert, nad. Sitting in chair in hallway. Resp: Unlabored on RA Abdo: soft, minimally ttp at epigastric region, nondistended, +bowel sounds A/P: 88 y/o M w/ PMHX HTN, HLD, hiatal hernia, and BPH a/w abdo pain/discomfort , ct with +cholelithiasis, U/S with thickened GB wall and trace fluid, HIDA negative. No definitive evidence of acute cholecystitis at this time -F/u AM labs -Advance diet as tolerated -Will f/u later this afternoon...pt tolerating diet this afternoon -If any further questions/concerns pls contact gen surgery d/w attending Dr Dacosta
[2019-04-06 08:55] LABS: ALBUMIN 3.6 g/dl (3.4-5.0); BILIRUBIN,TOTAL 0.8 mg/dL (0.2-1); BLOOD UREA NITROGEN 9.9 mg/dL (7-18); CALCIUM 8.6 mg/dL (8.5-10.1); CREATININE 0.6 mg/dL (0.55-1.3); MAGNESIUM 1.8 mg/dL (1.8-2.4); POTASSIUM 4.2 mmol/L (3.5-5.1); TOT PROT 6.7 g/dl (6.4-8.2)
[2019-04-06] MEDS: FINASTERIDE 5 MG TABLET (FP) PO SCH (12:17)
[2019-04-06] MEDS: RAMIPRIL 5 MG CAPSULE (FP) PO SCH (12:17)
--- NOTE | 2019-04-06 14:19 | DS ---
Physical Exam: SUBJECTIVE: Patient seen and examined 88 y/o/m with PMHx of HTN, HLD, hiatal hernia, and BPH here for abd discomfort that started last night around 1800 after he had dinner. He states the discomfort is in the RLQ and intermittent. He states it is not painful and is not able to accurately describe it. The discomfort does not radiate and nothing makes it better or worse. 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 He did not lose consciousness, fall, or hit his head at all during this time. He was prescribed a Z-pack last week by Dr. Moreno for an upper respiratory infection and finished his last dose yesterday. He states he still feels congested. He denies any chest pain, SOB, N/V/D, dysuria, constipation, or other symptoms. OBJECTIVE: Vital Signs Period Temp Pulse Resp BP Sys/Kim Pulse Ox Last 24 Hr 97.2 F-97.4 F 68-75 17-18 150-162/53-86 96-98 PHYSICAL EXAM GENERAL: The patient is awake, alert, and fully oriented, in no acute distress. HEAD: Normal with no signs of trauma. EYES: PERRL, extraocular movements intact, sclera anicteric, conjunctiva clear. ENT: Ears normal, nares patent, oropharynx clear without exudates, moist mucous membranes. NECK: Trachea midline, full range of motion, supple. LUNGS: Breath sounds equal, clear to auscultation bilaterally, no wheezes, no crackles, no accessory muscle use. HEART: Regular rate and rhythm, S1, S2 without murmur, rub or gallop. ABDOMEN: Soft, nontender, nondistended, normoactive bowel sounds, no guarding, no rebound, no hepatosplenomegaly, no masses. EXTREMITIES: 2+ pulses, warm, well-perfused, no edema. NEUROLOGICAL: Cranial nerves II through XII grossly intact. Normal speech, gait not observed. PSYCH: Normal mood, normal affect. SKIN: Warm, dry, normal turgor, no rashes or lesions noted. LABS Laboratory Results - last 24 hr 04/05/19 04/06/19 04/06/19 18:00 06:24 06:24 WBC 12.2 H RBC 4.83 Hgb 15.1 Hct 43.8 MCV 90.6 MCH 31.3 MCHC 34.6 RDW 13.1 Plt Count 213 MPV 7.8 Absolute Neuts (auto) 10.2 H Neutrophils % 83.3 H Lymphocytes % 7.9 L D Monocytes % 7.7 D Eosinophils % 0.9 Basophils % 0.2 Nucleated RBC % 0 Sodium 129 L Potassium 4.2 Chloride 95 L Carbon Dioxide 24 Anion Gap 9 BUN 9.9 Creatinine 0.6 Est GFR (CKD-EPI)AfAm 103.31 Est GFR (CKD-EPI)NonAf 89.14 Random Glucose 98 Calcium 8.6 Magnesium 1.8 Total Bilirubin 0.8 AST 25 ALT 23 Alkaline Phosphatase 64 Total Protein 6.7 Albumin 3.6 Blood Type AB NEGATIVE HOSPITAL COURSE: Date of Admission:04/05/19 Date of Discharge: 04/06/19 Minutes to complete discharge: 35 Discharge Summary Problems reviewed: Yes Reason For Visit: ABD PAIN Current Active Problems Abdominal pain (Acute) Leukocytosis (Acute) Liver mass (Acute) Near syncope (Acute) Hospital Course: On exam TTP to mid quad radiating to right flank. Radiographic findings of gallstones. No evidence of pericholecystic fluid/GB thickening. No fevers but with leukocytosi . HIDA [place] and no evidence of choleccystitis Hypodense Mass noted on CT to liver previously seen on imaging in 2013. Could represent hemangioma. Eitan mejia with PCP Tolerated diet and stable for discharge with f/ u with PCP in 2 weeks Problem List - Problems (1) Liver mass Hemangioma. Follow the PCP Code(s): R16.0 - HEPATOMEGALY, NOT ELSEWHERE CLASSIFIED (2) Abdominal pain Resolved. HIDA scan megative. Tolerated diet Code(s): R10.9 - UNSPECIFIED ABDOMINAL PAIN Qualifiers: Abdominal location: right lower quadrant Qualified Code(s): R10.31 - Right lower quadrant pain (3) Leukocytosis Resolved. Afebrile. Code(s): D72.829 - ELEVATED WHITE BLOOD CELL COUNT, UNSPECIFIED Qualifiers: Leukocytosis type: unspecified Qualified Code(s): D72.829 - Elevated white blood cell count, unspecified Condition: Improved - Instructions Diet, Activity, Other Instructions: You were admitted for abdominal pain. An ultrasound and CT was done that revealed gallstones in the gallbladder but not obstructing the ducts , but no inflammation/infection of gallbladder. It is possible that you did have a stone that passed though and that was what the pain was from. Keep you diet light the next couple of days. Then resume a low fat low cholesterol diet. No no medications were prescribed. Resume all medications. Take you blood pressure before you take your BP medications. On the CT scan there was a mass in the liver, most likely a hemangioma that was previously seen in 2013. Following up with your PCP. If you have return of abdominal pain call you PCP or return back to the ED. Referrals: Martínez Moreno MD [Primary Care Provider] - Disposition: HOME - Home Medications Comprehensive Discharge Medication List: Ambulatory Orders Simvastatin [Zocor -] 20 mg PO HS 04/21/12 Famotidine [Pepcid -] 1 tab PO PRN 07/22/12 Ramipril 10 mg PO DAILY 03/29/19 Tamsulosin HCl [Flomax] 0.4 mg PO HS 03/29/19 Finasteride 5 mg PO DAILY 04/05/19 Prescription Drug Monitoring Program (I-STOP) results: I-STOP reviewed and no issues identified Problem List - Problems (1) Liver mass Code(s): R16.0 - HEPATOMEGALY, NOT ELSEWHERE CLASSIFIED (2) Abdominal pain Code(s): R10.9 - UNSPECIFIED ABDOMINAL PAIN Qualifiers: Abdominal location: right lower quadrant Qualified Code(s): R10.31 - Right lower quadrant pain (3) Leukocytosis Code(s): D72.829 - ELEVATED WHITE BLOOD CELL COUNT, UNSPECIFIED Qualifiers: Leukocytosis type: unspecified Qualified Code(s): D72.829 - Elevated white blood cell count, unspecified This patient is new to me today: No Emergency Visit: Yes ED Registration Date: 04/05/19 Care time: The patient presented to the Emergency Department on the above date and was hospitalized for further evaluation of their emergent condition. Critical Care patient: No - Discharge Referral Referred to [facility] Med P.C.: No
[2019-04-06 14:26] VITALS: BP 150/79; PULSE 83; TEMP 98
[2019-04-08 15:07] LABS: HEP B CORE AB, TOT Negative (Negative)
== END 2019-04-06 16:31 | disposition home or self-care (01) | DRG 445 ==
LOC: JER 21:53 → JERBED 04-05 02:37 → J5S 04-06 02:34
PROVIDERS: ADMIT Internal Medicine; ATTEND Nurse Practitioner Acute Care
DX: K80.20 Calculus of gallbladder without cholecystitis without obstruction (principal); E87.1 Hypo-osmolality and hyponatremia; I10 Essential (primary) hypertension; E78.5 Hyperlipidemia, unspecified; N40.0 Benign prostatic hyperplasia without lower urinary tract symptoms; K44.9 Diaphragmatic hernia without obstruction or gangrene; Z88.0 Allergy status to penicillin; K59.00 Constipation, unspecified; R16.0 Hepatomegaly, not elsewhere classified; K57.90 Diverticulosis of intestine, part unspecified, without perforation or abscess without bleeding; I70.0 Atherosclerosis of aorta
CPT/HCPCS: 36415; 71045-TC-FY; 74176-TC; 76705-TC; 78226-TC; 80048; 80053; 81003; 83735; 84484; 85025; 85610; 85730; 86704; 86706; 86707; 86708; 86709; 86850; 86900; 86901; 87086; 87340; 87522; 93005; 93010; 99285-25; A9537; J0131; J7030